=== PATIENT | male | born 1960 | race Caucasian/White ===

== ENCOUNTER 2022-01-16 17:44 | Inpatient (IN) | payer OTHER ==
[2022-01-16 18:23] VITALS: BMI 23.1
[2022-01-16] MEDS ORDERED: MAGNESIUM CITRATE 300 ML BOTTLE PO PRN (21:04)
[2022-01-16] MEDS ORDERED: IBUPROFEN 600 MG TABLET (FP) PO PRN (21:04)
[2022-01-16] MEDS ORDERED: DICYCLOMINE HCL 10 MG CAPSULE PO PRN (21:04)
[2022-01-16] MEDS ORDERED: ONDANSETRON *ODT* 4 MG TABLET SL PRN (21:04)
[2022-01-16] MEDS ORDERED: BENZOCAINE/MENTHOL (CHLORASEPTIC ) LOZENGE MM PRN (21:04)
[2022-01-16] MEDS ORDERED: IBUPROFEN 400 MG TABLET (FP) PO PRN (21:04)
[2022-01-16] MEDS ORDERED: ACETAMINOPHEN 325 MG TABLET (FP) PO PRN ×2 (21:04)
[2022-01-16] MEDS ORDERED: MAGNESIUM HYDROX 2400MG/30ML ORAL SUSPENSION 30 ML CUP PO PRN (21:04)
[2022-01-16] MEDS ORDERED: chlordiazePOXIDE HCL 25 MG CAPSULE PO PRN (21:04)
[2022-01-16] MEDS ORDERED: BISMUTH SUBSALICYLATE 524 MG/30 ML PO PRN (21:04)
[2022-01-16] MEDS ORDERED: MAG HYDROX/AL HYDROX/SIMETH 30 ML UNIT-DOSE CUP PO PRN (21:04)
[2022-01-16] MEDS ORDERED: LOPERAMIDE HCL 2 MG CAPSULE PO PRN (21:04)
[2022-01-16] MEDS: chlordiazePOXIDE HCL 25 MG CAPSULE PO SCH (23:53)
[2022-01-16] MEDS: THIAMINE HCL 100 MG TABLET (FP) PO SCH (23:55)
[2022-01-16] MEDS: MELATONIN 5 MG TABLETS PO SCH (23:55)
[2022-01-17] MEDS: chlordiazePOXIDE HCL 25 MG CAPSULE PO SCH ×2 (05:44→10:46)
[2022-01-17 10:45] LABS: HEMOGLOBIN 10.7 GM/dL (11.7-16.9); MCH 32.9 pg (25.7-33.7); MCHC 33.5 g/dl (32.0-35.9); MEAN CELL VOLUME 98.3 fl (80-96); MEAN PLT VOLUME 7.1 fl (7.5-11.1); PLATELET COUNT 107 10^3/uL (134-434); RBC 3.26 M/mm3 (4.00-5.60); RDW 14.9 % (11.9-15.9); WHITE BLOOD COUNT 4.3 K/mm3 (4.0-10.0)
[2022-01-17] MEDS: METHOCARBAMOL 500 MG TABLET PO PRN (10:46)
[2022-01-17] MEDS: PRENATAL VITAMINS W/ FOLIC ACID TABLET (FP) PO SCH (10:46)
[2022-01-17 10:50] LABS: BLOOD UREA NITROGEN 9.6 mg/dL (7-18); CALCIUM 8.4 mg/dL (8.5-10.1)
[2022-01-17 10:54] LABS: CREATININE 0.4 mg/dL (0.55-1.3)
[2022-01-17 10:55] LABS: BILIRUBIN,TOTAL 0.8 mg/dL (0.2-1)
[2022-01-17] MEDS: LORazepam 1 MG TABLET PO PRN ×2 (18:12→22:45)
[2022-01-17] MEDS: LORazepam 2 MG TABLET PO SCH ×2 (18:30→23:01)
[2022-01-17] MEDS: THIAMINE HCL 100 MG TABLET (FP) PO SCH (22:45)
[2022-01-17] MEDS: MELATONIN 5 MG TABLETS PO SCH (22:47)
[2022-01-18] MEDS ORDERED: chlordiazePOXIDE HCL 25 MG CAPSULE PO SCH (05:00)
[2022-01-18] MEDS: LORazepam 1 MG TABLET PO SCH ×4 (05:16→22:31)
[2022-01-18] MEDS: PRENATAL VITAMINS W/ FOLIC ACID TABLET (FP) PO SCH (10:35)
[2022-01-18] MEDS: METHOCARBAMOL 500 MG TABLET PO PRN (10:36)
[2022-01-18] MEDS: THIAMINE HCL 100 MG TABLET (FP) PO SCH (22:31)
[2022-01-18] MEDS: MELATONIN 5 MG TABLETS PO SCH (22:32)
[2022-01-19] MEDS ORDERED: chlordiazePOXIDE HCL 10 MG CAPSULE PO PRN
[2022-01-19] MEDS ORDERED: chlordiazePOXIDE HCL 10 MG CAPSULE PO SCH (05:00)
[2022-01-19] MEDS: LORazepam 0.5 MG TABLET PO SCH ×4 (05:35→22:50)
[2022-01-19] MEDS: METHOCARBAMOL 500 MG TABLET PO PRN (10:39)
[2022-01-19] MEDS: PRENATAL VITAMINS W/ FOLIC ACID TABLET (FP) PO SCH (10:39)
[2022-01-19] MEDS ORDERED: ACAMPROSATE CALCIUM 333 MG TABLET.DR PO ONE (14:00)
[2022-01-19] MEDS: THIAMINE HCL 100 MG TABLET (FP) PO SCH (22:51)
[2022-01-19] MEDS: MELATONIN 5 MG TABLETS PO SCH (22:52)
[2022-01-20] MEDS ORDERED: LORazepam 0.5 MG TABLET PO PRN
[2022-01-20] MEDS ORDERED: LORazepam 0.5 MG TABLET PO ONE (05:00)
[2022-01-20] MEDS ORDERED: chlordiazePOXIDE HCL 10 MG CAPSULE PO SCH (05:00)
[2022-01-20] MEDS ORDERED: INSULIN (NOVOLOG) ASPART 100 UNITS/ML 10ML VIAL ONE (08:08)
[2022-01-20 09:31] VITALS: BP 121/50; PULSE 109; TEMP 96.9
[2022-01-21] MEDS ORDERED: chlordiazePOXIDE HCL 10 MG CAPSULE PO ONE (05:00)
== END 2022-01-20 09:51 | disposition home or self-care (01) | DRG 775 ==
LOC: YASAS 17:44 → Y6N 22:15
PROVIDERS: ADMIT Surgery; ATTEND Allergy & Immunology
PROC: HZ2ZZZZ Detoxification Services for Substance Abuse Treatment (ICD-10-PCS; principal; 2022-01-16)
DX: F10.230 Alcohol dependence with withdrawal, uncomplicated (principal); R03.0 Elevated blood-pressure reading, without diagnosis of hypertension; R74.01 Elevation of levels of liver transaminase levels
CPT/HCPCS: 36415; 80053; 85027; 86780; 87811; 93005; 93010; C9803-CS; U0003; U0005